=== PATIENT | female | born 1955 | race Two or more races ===

== ENCOUNTER 2022-06-26 17:50 | Emergency (ER) | payer MEDICARE, MEDICAID, OTHER ==
[~2022-06-26] VITALS: Ht 167.6 cm; Wt 86.3 kg
[2022-06-26] MEDS ORDERED: KETOROLAC TROMETH 60MG/2ML VIAL IM ONE (21:00)
[2022-06-26 21:42] VITALS: BP 118/68
== END 2022-06-26 21:44 | disposition home or self-care (01) ==
LOC: ER 17:50
DX: M79.10 Myalgia, unspecified site (principal); M54.6 Pain in thoracic spine; M54.2 Cervicalgia; R07.9 Chest pain, unspecified; I10 Essential (primary) hypertension; Z88.8 Allergy status to other drugs, medicaments and biological substances; V49.9XXA Car occupant (driver) (passenger) injured in unspecified traffic accident, initial encounter; Y93.89 Activity, other specified; Y92.410 Unspecified street and highway as the place of occurrence of the external cause; Y99.8 Other external cause status
CPT/HCPCS: 72040; 96372; 99283; J1885

== ENCOUNTER 2024-09-21 13:38 | Emergency (ER) | payer MEDICARE, MEDICAID ==
[~2024-09-21] VITALS: Ht 162.6 cm; Wt 83.0 kg
[2024-09-21] MEDS: KETOROLAC TROMETH 30 MG/ML 1ML VIAL IV ONE (15:53)
--- NOTE | 2024-09-21 16:02 | ED.PDOC ---
Back pain HPI HPI Comments [age] year speaking [place] female presented to the [facility] complaining of low back pain radiating to both hips for four days no patient multiple years ago and severe injuries to her back Patient with a history of hypertension Chief Complaint: Lower Extremity Time Seen by MD: 14:32 Primary Care Provider: FAUZIA Reviewed Notes: Nurses Notes, Medications, Allergies Allergies: Coded Allergies: Acetaminophen (Verified Allergy, Severe, 06/26/22) Hydrocodone (Verified Allergy, Severe, 06/26/22) Tramadol (Verified Allergy, Severe, 06/26/22) Home Meds Active Scripts Naproxen Sodium (Anaprox Ds) 550 Mg Tab, 1 TAB PO [id number] PRN for 5 Days, #10 TAB Prov:ADWOA ISLAS MD 09/21/24 Cyclobenzaprine HCl (Cyclobenzaprine Hydrochlo) 10 Mg Tab, 10 MG PO TID for 10 Days, #30 TAB Prov:ADWOA ISLAS MD 09/21/24 Information Source: Patient Mode of Arrival: Ambulatory Timing: Days Duration: Since onset Location of Back pain: (L) Buttocks, (L) Lower back, (B) Lower back, (R) Lumbar, (L) Lumbar Radiates to: Posterior: (R) Buttocks, (L) Buttocks, (R) Thigh, (L) Thigh Severity: Moderate Quality: Aching, Sharp Onset: Spontaneous History of: Chronic Back Pain Modifying Factors: Movement, Twisting, Walking Past Medical History PAST MEDICAL HISTORY: HTN Surgical History: Denies all surgeries BIOINFORMATICS ENGINEER History: Denies all BIOINFORMATICS ENGINEER Hx Family History Family History: Reviewed,noncontributory to illness Social History Smoker: Non-Smoker Alcohol: Denies ETOH Use Drugs: Denies Drug Use Lives In: Home Constitutional: denies: chills, diaphoresis, fatigue, fever, malaise, sweats, weakness, others EENTM: denies: blurred vision, double vision, ear bleeding, ear discharge, ear drainage, ear pain, ear ringing, eye pain, eye redness, hearing loss, mouth pain, mouth swelling, nasal discharge, nose bleeding, nose congestion, nose pain, photophobia, tearing, throat pain, throat swelling, voice changes, others Respiratory: denies: cough, hemoptysis, orthopnea, SOB at rest, shortness of breath, SOB with excertion, stridor, wheezing, others Cardiovascular: denies: chest pain, dizzy spells, diaphoresis, Dyspnea on exertion, edema, irregular heart beat, left arm pain, lightheadedness, palpitations, PND, syncope, others Gastrointestinal: denies: abdomen distended, abdominal pain, blood streaked bowels, constipated, diarrhea, dysphagia, difficulty swallowing, hematemesis, melena, nausea, poor appetite, poor fluid intake, rectal bleeding, rectal pain, vomiting, others Genitourinary: denies: abnormal vagina bleeding, burning, dyspareunia, dysuria, flank pain, frequency, hematuria, incontinence, pain, , vagina discharge, urgency, others Neurological: denies: dizziness, fainting, headache, left sided numbness, left sided weakness, numbness, paresthesia, pre-existing deficit, right sided numbness, right sided weakness, seizure, speech problems, tingling, tremors, weakness, others Musculoskeletal: reports: back pain, joint pain, muscle pain, muscle stiffness; denies: gout, joint swelling, neck pain, others Integumetry: denies: bruises, change in color, change in hair/nails, dryness, laceration, lesions, lumps, rash, wounds, others Allergic/Immunocompromised: denies: Difficulty Healing, Frequent Infections, Hives, Itching, others Hematologic/Lymphatic: denies: anemia, blood clots, easy bleeding, easy bruising, swollen glands, others Endocrine: denies: excessive hunger, excessive sweating, excessive thirst, excessive urination, flushing, intolerance to cold, intolerance to heat, unexplained weight gain, unexplained weight loss, others Psychiatric: denies: anxiety, bipolar disorder, depression, hopeless, panic disorder, schizophrenia, sleepless, suicidal, others All Other Systems: Reviewed and Negative Physical Exam General Appearance: Moderate Distress, Obese HEENT: Normal ENT Inspection, PERRL/EOMI Neck: Full Range of Motion, Non-Tender, Normal, Normal Inspection Respiratory: Chest Non-Tender, Lungs Clear, No Accessory Muscle Use, No Respiratory Distress, Normal Breath Sounds Cardiovascular: No Edema, No JVD, No Murmur, No Gallop, Normal Peripheral Pulses, Regular Rate/Rhythm Breast Exam: Deferred Gastrointestinal: No Organomegaly, Non Tender, No Pulsatile Mass, Normal Bowel Sounds, Soft Genitalia: Deferred Pelvic: Deferred Rectal: Deferred Extremities: No calf tenderness, Normal capillary refill, Normal inspection, Normal range of motion, Non-tender, No pedal edema Musculoskeletal : Location: Bilateral Extremity Location: Hip, Leg Neurologic: Alert, sign language translator II-XII nml as Tested, Normal Affect, Normal Mood Cerebellar Function: Normal Reflexes: Normal Skin: Dry, Normal Color, Warm Peripheral Pulses: 1+ carotid (R), 1+ carotid (L) Lymphatic: No Adenopathy Was a procedure done? Was a procedure done?: No Back Pain Differential Dx Differential Diagnosis: DJD, Musculoskeletal Pain, Strain, Other (Neuropathy) Other Differential Diagnosis Radiculopathy X-Ray, Labs, Meds, VS Vital Signs Date Time Temp Pulse Resp B/P (MAP) Pulse Ox O2 Delivery O2 Flow Rate FiO2 09/21/24 15:05 97.3 87 17 154/74 (100) 97 97.3 09/21/24 15:05 87 17 97 Room Air 09/21/24 13:45 97.3 87 17 154/74 (100) 97 Current Medications Medications (Trade) Dose Ordered Sig/Irene Route Start Time Stop Time Status Last Admin Ketorolac Tromethamine (Toradol Injection) 60 mg ONCE ONCE IM 09/21/24 16:00 09/21/24 16:15 DC 09/21/24 16:36 X-Ray, Labs, Meds, VS Comment Course in the [facility] uneventful patient came in complaining of severe back pain radiating to both hips and posterior legs for the past four days CT of the lumbar spine shows severe arthritis without severe stenosis Patient will be discharged home to follow up CP and possible an orthopedist Time of 1ST Reevaluation: 14:35 Reevaluation 1ST: Unchanged Time of 2ND Reevaluation: 17:39 Reevaluation 2ND: Improved Consultation: PCP Patient Education/Counseling: Diagnosis, Treatment, Prognosis, Need For Follow Up Family Education/Counseling: Diagnosis, Treatment, Prognosis, Need For Follow Up Departure 1 Departure Time of Disposition: 17:42 Impression: Primary Impression: Lumbosacral radiculopathy due to degenerative joint disease of spine Disposition: 01 HOME / SELF CARE / HOMELESS Condition: Fair Additional Instructions: Hot showers and follow up with your PCP e-Prescriptions Naproxen Sodium (Anaprox Ds) 550 Mg Tab 1 TAB PO [id number] PRN for 5 Days, #10 TAB Prov: ADWOA ISLAS MD 09/21/24 Cyclobenzaprine HCl (Cyclobenzaprine Hydrochlo) 10 Mg Tab 10 MG PO TID for 10 Days, #30 TAB Prov: ADWOA ISLAS MD 09/21/24 Discharged With: Self Critical Care Note Critical Care Time?: No Stability Stability form required: No Heart Score Heart Score: Heart Score Response (Comments) Value History N/A 0 EKG N/A 0 Age >65 2 Risk Factors 1 or 2 risk factors 1 Troponin N/A 0 Total 3 ADWOA ISLAS MD Sep 21, 2024 16:02
--- NOTE | 2024-09-21 16:22 | DVH ---
CLINICAL INFORMATION: 69 years old, Female; Lumbar spine tenderness with bilateral radiculopathy. TECHNIQUE: Axial CT images of the lumbar spine were obtained without IV contrast. Coronal and sagitt al reformatted images were obtained, reviewed, and stored. One or more of the following dose reducti on techniques were used: Automated exposure control. Adjustment of mA and/or kV according to patient size. CTDIvol = 36.67 mGy DLP = 1110.2 mGy-cm COMPARISON: None FINDINGS: There is a sacralized L5 at the lumbosacral junction with somewhat rudimentary disc at L5-S1. Vertebr al body alignment is within normal limits. There are multilevel schmorl's nodes. Vertebral body heig hts are otherwise maintained. Posterior elements are intact. No acute fracture. 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 Lumbar disc levels: L1: Moderate disc space narrowing. No significant spinal canal or neural foraminal stenosis. L1-L2: Minimal disc bulge. No significant spinal canal stenosis or neural foraminal stenosis. L2-L3: Moderate disc space narrowing. Vacuum disc disease. Diffuse disc bulge mildly indenting the ventral aspect of the thecal sac without significant spinal canal stenosis. Facet hypertrophy and enc roachment of the neural foramina by the disc bulge contributes to moderate to severe bilateral neural foraminal stenoses. L3-L4: [id number] disc space narrowing. Diffuse disc bulge mildly indenting the ventral aspect of the thecal sac. No significant spinal canal stenosis. Facet hypertrophy with moderate bilateral n eural foraminal stenoses. Vacuum disc disease. L4-L5: Severe disc space narrowing. No significant spinal canal stenosis. Facet hypertrophy and dors al spurring contributes to severe bilateral neural foraminal stenoses. Vacuum disc disease. L5-S1: No significant disc abnormality or spinal canal stenosis. No significant neural foraminal sten osis. IMPRESSION: 1. No evidence of acute fracture or spondylolisthesis. 2. Degenerative disc disease and facet disease in the lumbar spine with associated neural foraminal s tenoses as detailed above. No significant spinal canal stenosis. 3. Additional findings as detailed above.
[2024-09-21] MEDS: KETOROLAC TROMETH 60MG/2ML VIAL IM ONE (16:36)
[2024-09-21 17:40] VITALS: BP 148/76; PULSE 70; RESP 18; TEMP 98.6; O2SAT 95
[2024-09-21] MEDS ORDERED: CYCL-611 PO (17:45)
[2024-09-21] MEDS ORDERED: NAPR5TAB4 PO (17:45)
== END 2024-09-21 18:14 | disposition home or self-care (01) ==
LOC: ER 13:38
DX: M47.27 Other spondylosis with radiculopathy, lumbosacral region (principal); I10 Essential (primary) hypertension; Z88.5 Allergy status to narcotic agent; Z79.899 Other long term (current) drug therapy
CPT/HCPCS: 72131; 96372; 99285; J1885